=== PATIENT | female | born 1940 | race Caucasian/White ===

== ENCOUNTER 2018-06-03 11:27 | Emergency (ER) | payer MEDICARE, OTHER ==
[2018-06-03] MEDS ORDERED: IBUPROFEN 400 MG TABLET PO STA (13:24)
--- NOTE | 2018-06-03 13:26 | ED Physician Documentation ---
PD HPI HEAD INJURY - Stated complaint Stated Complaint: HEAD LAC - Chief complaint Chief Complaint: Laceration - History obtained from History obtained from: Patient - History of Present Illness Mechanism of head injury: Fell Where head injury occurred: [place] - onset: Today Location of injury: Back Associated symptoms: No: LOC, AMS Symptoms improve with: Rest, Ice Similar symptoms before: Has not had sx before Recently seen: Not recently seen - Additional information Additional information: Patient is a 77 year old female presenting to the emergency department after a fall. patient [place] and fell back. patient hit her head on some rough concrete. patient denies any loc and states that she is not on any blood thinners. Patient already washed her scalp with soap and water. Review of Systems Constitutional: denies: Fever, Chills Eyes: denies: Loss of vision, Decreased vision, Photophobia Nose: denies: Epistaxis Throat: denies: Dental pain / toothache GI: denies: Nausea, Vomiting Skin: reports: Abrasion (s) Neurologic: reports: Head injury. denies: Altered mental status, Headache, LOC PD PAST MEDICAL HISTORY - Social History Does the pt smoke?: No Smoking Status: Never smoker PD ED PE NORMAL - Vitals Vital signs reviewed: Yes - General General: Alert and oriented X 3 - HEENT HEENT: PERRL, Ears normal - Neck Neck: No bony TTP - Cardiac Cardiac: RRR, No murmur - Respiratory Respiratory: No respiratory distress - Abdomen Abdomen: Soft - Extremities Extremities: No deformity - Neuro Neuro: Alert and oriented X 3, compliance investigator 2-12 intact, No motor deficit, No sensory deficit, Normal speech Eye Opening: Spontaneous Motor: Obeys Commands Verbal: Oriented GCS Score: 15 PD ED PE EXPANDED - HEENT HEENT Visual: 1 - abrasion 2 - abrasion 3 - abrasion Results - Vitals Vitals: Vital Signs - 24 hr 06/03/18 11:30 Temperature 36.5 C Heart Rate 82 Respiratory 16 Rate Blood Pressure 162/75 H O2 Saturation 97 Oxygen O2 Source Room air PD MEDICAL DECISION MAKING - ED course Complexity details: reviewed old records, re-evaluated patient, considered differential, d/w patient ED course: Patient was seen and examined at bedside. patient was well appearing and in no distress. there were no repairable lacerations. Patient was treated with ibuprofen. patient was up to date on tetanus. Patient required no further work up and was stable for discharge with outpatient follow up. - Sepsis Event Vital Signs: Vital Signs - 24 hr 06/03/18 11:30 Temperature 36.5 C Heart Rate 82 Respiratory 16 Rate Blood Pressure 162/75 H O2 Saturation 97 Oxygen O2 Source Room air Departure - Departure Disposition: Home, Self Care Clinical Impression: Abrasion Condition: Good Instructions: ED Abrasion Follow-Up: primary,care provider [Other] - As Needed Comments: Your wounds were superficial abrasions. there was nothing to repair today. you should keep it clean and dry and can wash it with regular soap and water. You should monitor for signs of infection. you can take motrin or tyelnol as needed for pain. you should return to the emergency department for nausea, vomiting, change in vision or worsening headache.
[2018-06-03 13:33] VITALS: BP 158/76
== END 2018-06-03 13:32 | disposition home or self-care (01) ==
LOC: ED 11:27
DX: T14.8XXA Other injury of unspecified body region, initial encounter (principal); W01.198A Fall on same level from slipping, tripping and stumbling with subsequent striking against other object, initial encounter; Y93.01 Activity, walking, marching and hiking; Y92.832 Beach as the place of occurrence of the external cause
CPT/HCPCS: 99283; A9270